=== PATIENT | male | born 1965 | race Caucasian/White ===

== ENCOUNTER 2017-08-08 19:03 | Emergency (ER) | payer OTHER ==
[~2017-08-08 19:03] MED LIST: ATROPINE 1 MG/10 ML SYRINGE ONE; EPINEPHrine 0.1 MG/ML SYG ONE; NA BICARBONATE 8.4% 50 ML SYG ONE
--- NOTE | 2017-08-08 19:37 | ERD ---
ER Documentation Chief Complaint Date/Time DATE: 08/08/17 TIME: 19:32 Chief Complaint Cardiac arrest HPI Patient is a 52-year-old male with unknown medical history who presents in full cardiac arrest. Please note the history and physical exam is limited as the patient is currently in full cardiac arrest. The patient had called 9 1 for shortness of breath when paramedics arrived he took 3 breaths and then stopped breathing and when the full cardiac arrest. They gave epinephrine and started bagging and brought him to the emergency department. I cannot obtain history otherwise. ROS All systems reviewed and are negative except as per history of present illness. Medications Home Meds Unable to Obtain Active Prescriptions or Reported Meds Allergies Allergies: Coded Allergies: Unknown: Unable to obtain (Unverified , 08/08/17) PMhx/Soc Medical and Surgical Hx: Unable to obtain FmHx Unable to obtain Physical Exam Physical Exam Const: Critically ill Head: Atraumatic Eyes: Fixed pupils bilaterally ENT: Being bagged at this point Neck: Full range of motion..~ No meningismus. Resp: Decreased breath sounds with bagging Cardio: Receiving high quality CPR Abd: Obese Skin: Pale skin Back: No midline or flank tenderness Ext: Cyanosis in extremities Neur: GCS 3, full cardiac arrest Procedures/MDM Endotracheal Intubation by me: Pre assessment performed. Pre-oxygenation performed with 100% oxygen RSI: Performed w/o complication or hypoxic events. Medications as ordered. Blade: MAC 4 Glidescope ET Tube: 8 cm Depth: 25 cm at the lip Intubation confirmed by colorimetric CO2, equal breath sounds, quiet over the stomach. Intraosseous Line Placement by me: Patient consented, area prepped, time out performed. Anesthesia: None used as a patient in full cardiac arrest Location: Anteromedial, Proximal Tibia (1-3 cm below Tibial tuberosity) Device: yellow 3.5 cm Technique: EZ-IO Drill Results: Bone Marrow Aspirated, No extravasation Complications: No evidence of extravasation, compartment syndrome, growth plate damage, or fat embolism Defibrillation: Patient required defibrillation during the cardiac arrest Technique: Biphasic defibrillation at 200 J for ventricular fibrillation Limited transthoracic echo performed by me Indication: Cardiac arrest Pericardium: No effusion Cardiac: No cardiac contractility Image archived in the medical record. Patient is a 52-year-old male who presents in full cardiac arrest. The patient was intubated upon arrival and ACLS protocol was followed. He had a IO line placed. He needed defibrillation for ventricular fibrillation but never regained pulses. He was pronounced at 1918. The patient's most likely cause of was from acute myocardial infarction or acute large pulmonary embolism. Unfortunately we were never able to regain pulses and he was pronounced . I considered TPA and we started mixing TPA but unfortunately the patient was never able to be given it as he became asystole and had no pulses so the patient was pronounced prior to TPA administration. Critical Care: Time: 35 minutes excluding all billable procedures. Treatments/Evaluations: Close monitoring and treatment of unstable vital signs, cardiorespiratory, and neurologic status, while maintaining tight balance of fluid, respiratory, and cardiac interventions. Departure Diagnosis: Primary Impression: Cardiac arrest Condition: Critical CORI HARKINS MD Aug 08, 2017 19:37
== END 2017-08-09 00:03 | disposition expired ==
LOC: E/R 19:03
DX: I46.9 Cardiac arrest, cause unspecified (principal)
CPT/HCPCS: 31500; 36680; 92950; J0171; J0461; Z7502; Z7610